=== PATIENT | female | born 1950 | race Caucasian/White ===

== ENCOUNTER 2018-10-19 14:21 | Emergency (ER) | payer SELFPAY ==
[2018-10-19] MEDS ORDERED: IBUPROFEN 400 MG TABLET PO ONE (14:57)
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
[2018-10-19 16:13] VITALS: BP 132/66
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
== END 2018-10-19 16:11 | disposition home or self-care (01) ==
LOC: ED 14:21
DX: S70.11XA Contusion of right thigh, initial encounter (principal); S09.8XXA Other specified injuries of head, initial encounter; V43.52XA Car driver injured in collision with other type car in traffic accident, initial encounter; W22.11XA Striking against or struck by driver side automobile airbag, initial encounter; Y93.89 Activity, other specified; Y92.414 Local residential or business street as the place of occurrence of the external cause
CPT/HCPCS: 70450; 72125; 72170; 99283; 99285

== ENCOUNTER 2018-10-20 11:37 | Emergency (ER) | payer SELFPAY ==
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
[2018-10-20 12:14] VITALS: BP 114/59
== END 2018-10-20 12:25 | disposition home or self-care (01) ==
LOC: ED 11:37
DX: R51 Headache (principal); V43.52XA Car driver injured in collision with other type car in traffic accident, initial encounter; Y93.89 Activity, other specified; Y92.410 Unspecified street and highway as the place of occurrence of the external cause
CPT/HCPCS: 99281